=== PATIENT | female | born 1985 | race Hispanic/Latino ===

== ENCOUNTER 2023-09-06 01:46 | Observation (INO) | payer MEDICAID ==
[~2023-09-06] VITALS: Ht 162.6 cm; Wt 91.2 kg
[2023-09-06 01:48] VITALS: BP 137/95; PULSE 86; RESP 16
[2023-09-06 02:18] LABS: ADD UA MICROSCOPIC YES; APPEARANCE,URINE CLEAR (CLEAR); BILIRUBIN,URINE NEGATIVE (NEGATIVE); COLOR,URINE COLORLESS (YELLOW); GLUCOSE, URINE (UA) NEGATIVE (NEGATIVE); KETONES,URINE NEGATIVE (NEGATIVE); LEUKOCYTE ESTERASE ,URINE NEGATIVE Leu/uL (NEGATIVE); NITRATE,URINE NEGATIVE (NEGATIVE); PH,URINE 6.5 (5.0-8.0); PROTEIN,URINE NEGATIVE (NEGATIVE); UROBILINOGEN,URINE 0.2 mg/dL (0.2-1.0)
[2023-09-06 02:21] LABS: BACTERIA,URINE RARE /HPF (None Seen); SQUAMOUS EPITHELIAL CELL,UR RARE /HPF (0-2)
[2023-09-06 02:25] LABS: AMPHET/METH SCREEN,URINE NEGATIVE (NEGATIVE); BARBITURATE SCREEN, URINE NEGATIVE (NEGATIVE); BENZODIAZEPINES SCREEN,URINE NEGATIVE (NEGATIVE); CANNABINOID SCREEN,URINE NEGATIVE (NEGATIVE); COCAINE SCREEN,URINE NEGATIVE (NEGATIVE); OPIATE SCREEN,URINE NEGATIVE (NEGATIVE); PHENCYCLIDINE SCREEN,URINE NEGATIVE (NEGATIVE)
[2023-09-06] MEDS: LACTATED RINGERS 1000ML IV PRN (03:01)
== END 2023-09-06 08:38 | disposition home or self-care (01) ==
LOC: EDH 01:46 → LDH 01:47 → EDH 01:57
PROVIDERS: ADMIT Obstetrics & Gynecology; ATTEND Obstetrics & Gynecology
DX: O46.93 Antepartum hemorrhage, unspecified, third trimester (principal); Z3A.32 32 weeks gestation of pregnancy; Z79.899 Other long term (current) drug therapy
CPT/HCPCS: 96360; 96361; 80305; 81001; 76805; G0378 ×7; G0379; J7120

== ENCOUNTER 2025-02-08 03:32 | Emergency (ER) | payer SELFPAY ==
[~2025-02-08] VITALS: Ht 162.6 cm; Wt 88.0 kg
--- NOTE | 2025-02-08 05:08 | ERN ---
General Chief Complaint: Other Problems Stated Complaint: C/O LEFT MIDDLE FINGERNAIL DETACHED Time Seen by MD: 03:38 History of Present Illness Initial Comments Karyna Quezada is a very pleasant 39-year-old female who comes in today with a left middle finger nail detached. Patient reports that she was walking her dog when she fell and when she landed on the ground her nail actually was partially detached Allergies: Coded Allergies: No Known Drug Allergies (Unverified Allergy, Unknown, 09/06/23) Past Medical History Past Medical History: No Pertinent History Past Surgical History: Female( History) : 3 Para: 2 Aborts: 0 ROS Dictation Constitutional: Negative for fever,chills, and weight loss Eyes: Negative for injury, pain,redness, and discharge ENT: Negative for injury,pain or swelling Cardiovascular: Negative for chest pain, palpitations, and edema Respiratory: Negative for shortness of breath, cough, and wheezing, Abdomen/GI: Negative for abdominal pain, nausea, vomiting, diarrhea, and constipation Back: Negative for injury and pain : Negative for injury, bleeding and discharge MS/Extremity: Fingernail detached Skin: Negative for rash, and discoloration Neuro: Negative for headache, weakness, numbness, tingling, and seizure Psych: Negative for suicide ideation, homicidal ideation, and hallucinations Physical Exam Physical Exam Dictation General: awake, alert, NAD Head/Face: Normocephalic, atraumatic Eyes: PERRL, EOMI, vision at baseline ENT: oral cavity clear, TMs clear, no signs of infection Neck: Trachea midline, supple, no nuchal rigidity Cardiovascular: RRR, normal S1/S2, No MRGs, no JVD Respiratory: CTAB, no respiratory distress, No rales or wheezes Abdomen: Soft, non-tender, non-distended, normal bowel sounds, no guarding or rebound. Skin: Warm, dry, normal turgor, no rash MS/Extremity: Left middle finger nail detachment Neuro: COAx4, GCS 15, strength 5/5, CN 2-12 intact, normal cerebellar exam, normal gait, Psych: Normal behavior, mood, and affect normal MDM Patient did have affected nail soaked and ultimately had it removed with some scissors. Patient tolerated procedure well without any issues. Advised patient that continues topical antibiotic. MDM: Differential diagnosis: Detached nail Rationale: Tests considered and ordered secondary to shared decision making include: Previous outside records reviewed: Old ER visits. Risk of complication and/or morbidity or mortality of patient management: None Medications-Per medication reconciliation Need for hospitalization: Patient does not meet criteria for hospitalization. Need for emergency major/minor surgery: No There are no social concerns with this patient. Prescription drug management Prescriptions will include symptomatic care Patient's prior external medical records from other ER visits were reviewed by me as indicated. Prior testing and results from previous visits were reviewed. Prior tests were taken into account with medical decision making and resource utilization, independent historian/historians were used to obtain complete medical history. I independently interpreted the test that were performed, results were reviewed by me and considered findings on radiology if ordered. Medical management and examination interpretation discussions were had by me with other qualified healthcare professionals as indicated for the patient's care. ED Course Vital Signs Date Time Temp Pulse Resp B/P (MAP) Pulse Ox O2 Delivery O2 Flow Rate FiO2 02/08/25 03:33 98.1 112 20 144/81 100 Room Air DX & DISP Disposition: Discharge Departure Impression: Primary Impression: Nail avulsion Condition: Stable Additional Instructions: Please apply topical antibiotic tear nail and keep it covered to avoid infection. Please follow up with your primary care physician if you have any additional concerns. Referrals: NONE (PCP) LASHA CORTEZ MD Feb 08, 2025 05:08
[2025-02-08] MEDS: BACITRACIN 1 EACH PACKET TP ONE (05:17)
[2025-02-08 05:26] VITALS: BP 132/80; PULSE 99; RESP 18; TEMP 98.2; O2SAT 100
--- NOTE | 2025-02-08 05:26 | NUR ---
WOUND CARE DONE ORDERED
== END 2025-02-08 05:27 | disposition home or self-care (01) ==
LOC: EDH 03:32
DX: S61.303A Unspecified open wound of left middle finger with damage to nail, initial encounter (principal); Z98.890 Other specified postprocedural states; W18.39XA Other fall on same level, initial encounter; Y93.K1 Activity, walking an animal; Y92.89 Other specified places as the place of occurrence of the external cause; Y99.8 Other external cause status
CPT/HCPCS: 99282

== ENCOUNTER 2025-03-03 06:50 | Emergency (ER) | payer SELFPAY ==
[~2025-03-03] VITALS: Ht 162.6 cm; Wt 91.2 kg
[2025-03-03 06:51] VITALS: TEMP 97.3
[2025-03-03] MEDS ORDERED: AMOX1TAB16 PO (07:15)
[2025-03-03] MEDS ORDERED: KETO10TA2 PO (07:15)
--- NOTE | 2025-03-03 07:16 | ERN ---
General Chief Complaint: Tooth Ache/Pain Stated Complaint: C/O TOOTH INFECTION W/SWELLING TO RT SIDE OF FACE Time Seen by MD: 07:03 History of Present Illness Initial Comments 39-year-old female no past medical history came in for right upper molar toothache which has been going on for the past few months. Patient states that it has been intermittent and has been getting worse and now she is noticing some swelling. Patient has a that she has a chipped tooth and has been recommended to see a dentist but has not followed up. Patient otherwise has no concerns. Allergies: Coded Allergies: No Known Drug Allergies (Unverified Allergy, Unknown, 09/06/23) Past Medical History Past Medical History: No Pertinent History Past Surgical History: Female( History) : 3 Para: 2 Aborts: 0 ROS Dictation Tooth ache Physical Exam Physical Exam Dictation This is a chip tooth noted in upper molar with a tenderness on palpation. MDM MDM: Differential diagnosis: Rationale: Tests considered and ordered secondary to shared decision making include: Previous outside records reviewed: Old ER visits. Risk of complication and/or morbidity or mortality of patient management: None Medications-Per medication reconciliation Need for hospitalization: Patient does not meet criteria for hospitalization. Need for emergency major/minor surgery: No There are no social concerns with this patient. Prescription drug management Prescriptions will include symptomatic care Patient's prior external medical records from other ER visits were reviewed by me as indicated. Prior testing and results from previous visits were reviewed. Prior tests were taken into account with medical decision making and resource utilization, independent historian/historians were used to obtain complete medical history. I independently interpreted the test that were performed, results were reviewed by me and considered findings on radiology if ordered. Medical management and examination interpretation discussions were had by me with other qualified healthcare professionals as indicated for the patient's care. ED Course Orders Procedure Category Date Status Time Ketorolac PHA 03/03/25 In Process Tromethamine 30mg/Ml 07:30 Hydrocodone/Apap PHA 03/03/25 In Process 5/325 (Iliamna 5/325mg) 07:30 Ceftriaxone 1g Vial PHA 03/03/25 In Process (Rocephine 1g Inj) 07:30 Current Medications Medications (Trade) Dose Ordered Sig/Saige Route PRN Reason Start Time Stop Time Status Last Admin Dose Admin Acetaminophen/ Hydrocodone Bitart (NORco 5/325MG) 1 tab ONCE ONCE PO 03/03/25 07:30 03/03/25 07:31 Ceftriaxone Sodium (ROCEphine 1G INJ) 1 gm ONCE ONCE IM 03/03/25 07:30 03/03/25 07:31 Ketorolac Tromethamine (toRADol) 30 mg ONCE ONCE IVP 03/03/25 07:30 03/03/25 07:31 Vital Signs Date Time Temp Pulse Resp B/P (MAP) Pulse Ox O2 Delivery O2 Flow Rate FiO2 03/03/25 06:51 97.3 80 20 146/83 96 Room Air DX & DISP Disposition: Discharge Departure Impression: Primary Impression: Dental abscess Condition: Stable Scripts Ketorolac Tromethamine (Ketorolac Tromethamine) 10 Mg Tablet 1 TAB PO BID PRN for pain for 5 Days, #20 TAB 0 Refills Prov: DENNIS HERNANDEZ MD 03/03/25 Amoxicillin/Potassium Clav (Amox Tr-K Clv 875-125 mg Tab) 875 Mg-125 Mg Tablet 1 EACH PO BID for 5 Days, #10 TAB 0 Refills Prov: DENNIS HERNANDEZ MD 03/03/25 Referrals: NONE (PCP) DENNIS HERNANDEZ MD Mar 03, 2025 07:15
[2025-03-03] MEDS: HYDROcodone/APAP 5/325 1 TAB TABLET PO ONE (07:24)
[2025-03-03 07:34] VITALS: BP 123/77; PULSE 72; RESP 16; O2SAT 99
== END 2025-03-03 07:41 | disposition home or self-care (01) ==
LOC: EDH 06:50
DX: K04.7 Periapical abscess without sinus (principal); Z98.890 Other specified postprocedural states
CPT/HCPCS: 99284; 96374; 96372; J1885; J0696